=== PATIENT | female | born 1995 | race Caucasian/White ===

== ENCOUNTER 2016-07-14 10:19 | Emergency (ER) | payer MEDICAID, OTHER ==
[~2016-07-14] VITALS: Ht 165.1 cm; Wt 76.2 kg
[~2016-07-14 10:19] MED LIST: ACET120S27; GUAISYP8; IBU100LQ
[2016-07-14 10:33] VITALS: BP 130/73
== END 2016-07-14 11:48 | disposition home or self-care (01) ==
LOC: ER 10:22
DX: J02.9 Acute pharyngitis, unspecified (principal); J06.9 Acute upper respiratory infection, unspecified; Z88.8 Allergy status to other drugs, medicaments and biological substances; Z91.048 Other nonmedicinal substance allergy status
CPT/HCPCS: 81025

== ENCOUNTER 2019-10-15 20:58 | Observation (INO) | payer MEDICAID ==
[~2019-10-15 20:58] MED LIST changes: -IBU100LQ; +IBUP100S11
== END 2019-10-15 23:00 | disposition home or self-care (01) | DRG 566 ==
LOC: LDRP 20:58
PROVIDERS: ADMIT Specialist; ATTEND Specialist
DX: O34.83 Maternal care for other abnormalities of pelvic organs, third trimester (principal); E86.0 Dehydration; N94.89 Other specified conditions associated with female genital organs and menstrual cycle; O99.284 Endocrine, nutritional and metabolic diseases complicating childbirth; R10.2 Pelvic and perineal pain; Z3A.38 38 weeks gestation of pregnancy
CPT/HCPCS: 59025; 81002; 82948; 82962; G0378